=== PATIENT | female | born 1975 | race Two or more races ===

== ENCOUNTER 2025-02-08 18:50 | Inpatient (IN) | payer BC ==
[~2025-02-08] VITALS: Ht 160 cm; Wt 83.9 kg
[2025-02-08] MEDS ORDERED: KETOROLAC TROMETHAMINE 30 MG VIAL IV ONE (20:30)
[2025-02-08] MEDS ORDERED: KETOROLAC TROMETHAMINE 30 MG VIAL ONE (20:30)
[2025-02-08] MEDS ORDERED: CEFTRIAXONE SODIUM 2,000 MG VIAL IV ONE (20:30)
[2025-02-08] MEDS ORDERED: 0.9 % SODIUM CHLORIDE 1,000 ML IV SCH ×2 (20:30→23:45)
[2025-02-08] MEDS ORDERED: CEFTRIAXONE SODIUM 2,000 MG VIAL ONE (20:31)
[2025-02-08 20:52] LABS: HEMOGLOBIN 14.2 g/dL (12.0-15.00); MEAN CELL VOLUME 86.8 fL (80.00-100.00); MEAN CORPUSCULAR HEMOGLOBIN 29.4 pg (27.00-32.0); MEAN CORPUSCULAR HGB CONC 33.9 g/dl (32.0-36.0); PLATELET COUNT 394 K/uL (150-450); RED BLOOD COUNT 4.84 M/uL (4.00-6.00); RED CELL DISTRIBUTION WIDTH 14.3 % (11.5-14.5)
[2025-02-08 21:12] LABS: BILIRUBIN TOTAL 0.46 mg/dL (0.3-1.2); CALCIUM 9.3 mg/dL (8.5-10.1); CREATININE SERUM 1.12 mg/dL (0.55-1.02); GFR 51.7; GLOBULINA 4.4 G/DL (2.4-3.5); POTASSIUM 3.51 mEq/L (3.5-5.1); TOTAL PROTEIN 8.4 gm/dL (6.4-8.2)
[2025-02-08 22:02] LABS: PH,URINE 6.5 (5.0-8.0); URINE APPEARANCE Clear; URINE BILIRRUBIN Negative (NEGATIVE); URINE BLOOD Large; URINE COLOR Yellow; URINE GLUCOSE Negative (NEGATIVE); URINE KETONE Negative (NEGATIVE); URINE LEUKOCYTE Negative; URINE NITRATE Negative; URINE UROBILINOGEN 0.2 E.U./dl
[2025-02-08 22:03] LABS: URINE BACTERIA 396.4 uL (0.0-1933); URINE EPITHELIAL CELLS 14.4 uL (0.0-38.8); URINE RBC 305.9 uL (0.0-20.8); URINE WBC 15.1 uL (0.0-23.2)
[2025-02-08 22:05] LABS: URINE CAST 1.17 uL (0.0-1.40); URINE PROTEIN 100 (NEGATIVE)
[2025-02-08] MEDS ORDERED: ONDANSETRON HCL 4 MG in 0.9 % SODIUM CHLORIDE 50 ML IV PRN (23:45)
[2025-02-08] MEDS ORDERED: KETOROLAC TROMETHAMINE 30 MG VIAL IV PRN (23:45)
[2025-02-08] MEDS ORDERED: ACETAMINOPHEN 500 MG GEL..CAP PO PRN (23:45)
[2025-02-08] MEDS ORDERED: FAMOTIDINE/PF 20 MG in 0.9 % SODIUM CHLORIDE 8 ML IV PUSH SCH (23:49)
[2025-02-09] VITALS: BP 134/84; O2SAT 98
[2025-02-09 02:58] LABS: INR 1.09; PARTIAL THROMBOPLASTIN TIME 28.2 SECONDS (22.0-34.0); PROTHROMBIN TIME 11.8 SECONDS (9.0-11.5)
[2025-02-09 04:35] VITALS: BP 134/88; O2SAT 100
[2025-02-09] MEDS ORDERED: FAMOTIDINE/PF 20 MG/2 ML VIAL ONE (04:37)
[2025-02-09 08:00] VITALS: BP 118/78; O2SAT 97
[2025-02-09] MEDS ORDERED: CEFTRIAXONE SODIUM 2,000 MG in 0.9 % SODIUM CHLORIDE 100 ML IV SCH (09:00)
[2025-02-09 16:58] VITALS: BP 117/75; O2SAT 95
[2025-02-10 00:41] VITALS: BP 127/79; O2SAT 100
[2025-02-10 08:00] VITALS: BP 144/80; O2SAT 99
[2025-02-10] MEDS ORDERED: PEPCID AC20 MG PO (09:22)
[2025-02-10] MEDS ORDERED: FLAGYL375 MG PO (09:22)
[2025-02-10] MEDS ORDERED: CIPRO500 MG PO (09:22)
== END 2025-02-10 10:21 | disposition home or self-care (01) | DRG 689 ==
LOC: ER 18:50 → SEC-K 02-09 01:06 → MEDJ 02-09 02:31 → SURH 02-09 03:33
PROVIDERS: General Practice; ADMIT Student in an Organized Health Care Education/Training Program; ATTEND Student in an Organized Health Care Education/Training Program
DX: N12 Tubulo-interstitial nephritis, not specified as acute or chronic (principal); A41.9 Sepsis, unspecified organism; R65.10 Systemic inflammatory response syndrome (SIRS) of non-infectious origin without acute organ dysfunction